=== PATIENT | male | born 1985 | race Caucasian/White ===

== ENCOUNTER 2019-08-16 08:59 | Emergency (ER) | payer MEDICAID ==
[~2019-08-16] VITALS: Ht 175.3 cm; Wt 79.4 kg
[2019-08-16 10:00] VITALS: BP 131/66
== END 2019-08-16 10:20 | disposition home or self-care (01) ==
LOC: ER 09:02
DX: L03.012 Cellulitis of left finger (principal); F17.210 Nicotine dependence, cigarettes, uncomplicated
CPT/HCPCS: 10060; 73130